=== PATIENT | male | born 1965 | race Caucasian/White ===

== ENCOUNTER 2018-08-27 06:17 | Day surgery (SDC) | payer BC ==
[~2018-08-27 06:17] MED LIST: CLINDAMYCIN 600 MG/D5W (PMX) 50 ML IVPB; SOD CHLORIDE 0.9% 1,000 ML IV
[2018-08-27] MEDS ORDERED: SEVOFLURANE 15 MIN (07:00)
[2018-08-27] MEDS ORDERED: MIDAZOLAM 1 MG/ML 2 ML INJ (07:48)
[2018-08-27] MEDS ORDERED: FENTAnyl 50 MCG/ML VIAL (07:48)
[2018-08-27] MEDS: BUPIVACAINE 0.5%/EPI (SDV) 30 ML INJ (08:23)
[2018-08-27] MEDS: BACITRACIN/POLYMYXIN 28.35 GM OINT TOP (08:23)
[2018-08-27] MEDS ORDERED: ONDANSETRON 4 MG INJ (08:46)
[2018-08-27] MEDS ORDERED: PROPOFOL 20 ML (08:51)
[2018-08-27] MEDS ORDERED: LIDOCAINE 2% (SDV) 5 ML INJ (08:51)
[2018-08-27] MEDS ORDERED: NEOSTIGMINE 3 MG/3 ML SYRINGE (08:51)
[2018-08-27] MEDS ORDERED: CEFAZOLIN 1 GM INJ (08:51)
[2018-08-27] MEDS ORDERED: GLYCOPYRROLATE 0.4 MG INJ (08:51)
[2018-08-27] MEDS ORDERED: IBUPROFEN 600 MG TAB PO (09:00)
[2018-08-27] MEDS ORDERED: KETOROLAC 30 MG INJ IV (09:00)
[2018-08-27] MEDS ORDERED: OXYCODONE/ACETAMINOPHEN (5/325) TAB PO (09:00)
[2018-08-27] MEDS ORDERED: HYDROmorphONE 1 MG/5 ML IV SYRINGE IV ×2 (09:21→09:30)
[2018-08-27] MEDS: HYDROmorphONE 1 MG/5 ML IV SYRINGE IV (09:29)
[2018-08-27] MEDS ORDERED: DIPHENHYDRAMINE 50 MG INJ IV (09:30)
[2018-08-27] MEDS ORDERED: ONDANSETRON 4 MG INJ IV (09:30)
[2018-08-27] MEDS ORDERED: FENTAnyl 50 MCG/ML VIAL IV (09:30)
[2018-08-27] MEDS ORDERED: METOCLOPRAMIDE 10 MG INJ IV (09:30)
[2018-08-27] MEDS ORDERED: MEPERIDINE 25 MG INJ IV (09:30)
[2018-08-27] MEDS: OXYCODONE/ACETAMINOPHEN (5/325) TAB PO (10:17)
== END 2018-08-27 10:35 | disposition home or self-care (01) ==
LOC: SDS 06:17
DX: K64.8 Other hemorrhoids (principal); K64.4 Residual hemorrhoidal skin tags
CPT/HCPCS: 46255; 88302